=== PATIENT | male | born 1955 | race Caucasian/White ===

== ENCOUNTER → 2019-11-02 16:23 | Outpatient (CLI) | payer OTHER, SELFPAY ==
--- NOTE | 2019-11-02 16:41 | EKG12_ITS ---
Test Reason : PREOP Blood Pressure : / mmHG Vent. Rate : 083 BPM Atrial Rate : 083 BPM P-R Int : 128 ms QRS Dur : 090 ms QT Int : 364 ms P-R-T Axes : 070 043 020 degrees QTc Int : 427 ms Normal sinus rhythm Normal ECG No previous ECGs available Confirmed by WATSON MERAZ, BON ([id number]), book editor JESSICA DODGE ([id number]) on 11/05/2019 10:57:10 AM Referred By: Mendel Meraz Confirmed By:BON CHAUDHARI MD
[2019-11-02 17:12] LABS: Hematocrit 39.8 % (40-54); Hemoglobin 12.9 g/dL (13.0-16.5); Mean Corp Hgb Conc 32.4 g/dL (32-36); Mean Corpuscular Hgb 30.6 pg (27.0-32.0); Mean Corpuscular Volume 94.5 fL (80-94); Platelet Count 197 K/mm3 (150-450); RBC Distribution Width CV 11.9 % (11.6-14.6); RBC Distribution Width SD 41.3 fl (35.1-43.9); Red Blood Count 4.21 M/mm3 (4.6-6.2); White Blood Count 2.8 K/mm3 (4.4-11.0)
[2019-11-02 17:43] LABS: Anion Gap 3 (5-15); BUN 18 mg/dL (7-18); BUN/Creat Ratio 19.2 RATIO (10-20); Calcium,Total 8.1 mg/dL (8.5-10.1); Chloride 108 mmol/L (98-107); Creatinine, Serum 0.94 mg/dL (0.70-1.30); EST Glomerular Filtration Rate 86 mL/min (>60); Est Glom Filt Rate - Afr Amer 104 mL/min (>60); Glucose 109 mg/dL (74-106); Potassium 3.7 mmol/L (3.5-5.1); Sodium Level 141 mmol/L (136-145)
== END ==
PROVIDERS: Referring Provider Otolaryngology; Visit Provider Otolaryngology
DX: Z01.818 Encounter for other preprocedural examination (principal)
CPT/HCPCS: 36415; 80048; 85027; 93005

== ENCOUNTER → 2020-06-14 10:26 | Outpatient (CLI) | payer OTHER, SELFPAY ==
--- NOTE | 2020-06-14 06:10 | CT_ITS ---
STUDY: CT MAXILLOFACIAL SINUSES REASON FOR EXAM: Male, 64 years old. SINUSITIS. HAD NASAL SURGERY NOV 2019 RADIATION DOSAGE (If Supplied By Facility): CTDIvol = ( 33.06 ) mGy, DLP = ( 788.40 ) mGycm TECHNIQUE: The patient was scanned in a multi detector CT scanner. High resolution axial imaging was performed without the administration of intravenous contrast material. Sagittal and coronal images were reconstructed. Individualized dose optimization techniques were used for this CT. COMPARISON: None. FINDINGS: FRONTAL SINUSES: Normal aeration, without mucosal inflammatory disease. ETHMOIDAL SINUSES: Normal aeration, without mucosal inflammatory disease. MAXILLARY SINUSES: Mucosal thickening in the maxillary sinuses consistent with chronic sinusitis. SPHENOIDAL SINUSES: Normal aeration, without mucosal inflammatory disease. Occluded ostiomeatal units bilaterally. Normal bilateral middle turbinates. Normal bilateral inferior turbinates. Normal midline nasal septum. There is patency of the bilateral nasal airways. The visualized osseous structures are normal. The visualized bilateral orbital contents are normal. CT/Sinus/Facial Bone IMPRESSION: Occluded ostiomeatal units bilaterally with the bilateral chronic maxillary sinusitis. Electronically Signed: Zack Diaz MD at 12:34 EDT Tel , Service support ,
== END ==
PROVIDERS: Referring Provider Otolaryngology; Visit Provider Otolaryngology
DX: J32.0 Chronic maxillary sinusitis (principal)
CPT/HCPCS: 70486

== ENCOUNTER → 2020-07-04 15:35 | Outpatient (CLI) | payer OTHER, SELFPAY ==
[2020-07-04 16:47] LABS: Hematocrit 41.8 % (40-54); Hemoglobin 14.2 g/dL (13.0-16.5); Mean Corpuscular Hgb 31.8 pg (27.0-32.0); Mean Corpuscular Volume 93.7 fL (80-94); Mean Platelet Vol. 10.2 fl (6.2-12.0); Platelet Count 354 K/mm3 (150-450); RBC Distribution Width CV 11.8 % (11.6-14.6); RBC Distribution Width SD 40.4 fl (35.1-43.9); Red Blood Count 4.46 M/mm3 (4.6-6.2); White Blood Count 6.3 K/mm3 (4.4-11.0)
[2020-07-04 17:15] LABS: Anion Gap 4 (5-15); BUN 25 mg/dL (7-18); BUN/Creat Ratio 28.1 RATIO (10-20); Calcium,Total 8.9 mg/dL (8.5-10.1); Chloride 109 mmol/L (98-107); Creatinine, Serum 0.89 mg/dL (0.70-1.30); EST Glomerular Filtration Rate 91 mL/min (>60); Est Glom Filt Rate - Afr Amer 110 mL/min (>60); Glucose 124 mg/dL (74-106); Sodium Level 140 mmol/L (136-145)
== END ==
PROVIDERS: Referring Provider Otolaryngology; Visit Provider Otolaryngology
DX: Z01.818 Encounter for other preprocedural examination (principal)
CPT/HCPCS: 36415; 80048; 85027

== ENCOUNTER → 2020-07-04 17:15 | Outpatient (CLI) | payer OTHER, SELFPAY | PROVIDERS: Referring Provider Otolaryngology; Visit Provider Otolaryngology | DX: Z11.59 Encounter for screening for other viral diseases (principal) | CPT/HCPCS: 87635; C9803; U0003 ==

== ENCOUNTER → 2020-07-08 | Outpatient (CLI) | payer OTHER, SELFPAY ==
--- NOTE | 2020-07-08 | ETH_PTH ---
PATIENT: MONCHO ENCISO LOC: [facility] U#:[id number] AGE/SX: 65/M ROOM: RE07/08/[address]: Dr. Jese Meraz MD : 1955 BED: DIS: 07/08/2020 SPEC #: [id number] RECD: 07/08/20 15:04 STATUS: LOLA JANIE #: [id number] JOSE: 07/08/20 00:[address]: Jese Meraz DEPT: SURGICAL PATHOLOGY RECD BY: Edwin Cline ENTERED: 07/09/20 10:25 SP TYPE: ETH TISS OTHR DR: No Primary Care Phys [facility] Tissues: A - Ethmoid sinus, NOS B - Ethmoid sinus, NOS Procedures: Decalcification bone/plaque Surgery Specimen Level IV HEADER OPERATION: Functional endoscopic sinus surgery PRE-OP DIAGNOSIS: Nasal polyp, nasal congestion TISSUE SUBMITTED: A - Left sinus contents, B - Right sinus contents MICROSCOPIC DIAGNOSIS A. Left sinus contents: Fragments of respiratory mucosa with chronic inflammation and bone. B. Right sinus contents: Fragments of respiratory mucosa with chronic inflammation and bone. OLEGARIO:ramesh 07/14/20 MICROSCOPIC DESCRIPTION Slides are reviewed. GROSS DESCRIPTION A - Received in fixative is one container labeled with the patient's name and designated left nasal contents. The specimen consists of multiple irregular fragments of gritty camarena tissue that in aggregate measure 4 x 3 x 0.2 cm. The specimen is totally submitted in two cassettes after decalcification. B - Received in fixative is one container labeled with the patient's name and designated right nasal contents. The specimen consists of multiple irregular fragments of light camarena tissue that in aggregate measure 2 x 1 x 0.2 cm. The specimen is totally submitted in one cassette. / AM:ramesh 07/09/20 TC:3 CPT: 10762 x2, 92435
== END | disposition home or self-care (01) ==
LOC: LABSPEC 15:16
PROVIDERS: Referring Provider Otolaryngology; Visit Provider Otolaryngology
DX: J33.9 Nasal polyp, unspecified (principal); R09.81 Nasal congestion
CPT/HCPCS: 88305; 88311

== ENCOUNTER 2020-07-17 17:26 | Emergency (ER) | payer OTHER, SELFPAY ==
[2020-07-17 17:27] VITALS: BP 159/80; PULSE 70; RESP 18; TEMP 36.6; O2SAT 96; BMI 23.6
--- NOTE | 2020-07-17 17:36 | ED.VIS.GEN ---
History of Present Illness Chief Complaint: Complaint Informant: Patient Onset: Days Context: Gradual Onset Timing: Continuous Current Severity: Moderate Maximum Severity: Moderate Narrative: The patient is a 65-year-old male with no significant medical history the presents to the emergency department with difficulty urinating. Patient states he underwent outpatient surgery 10 days ago. He states that he is been taking Tylenol, and antibiotic, and another medication he cannot recall. He states over the past 3 days, he is noticed that he is had significant difficulty urinating. He states he does not hesitancy with the stream and difficulty emptying his bladder. He states for the past 12 hours, he felt like he cannot go at all and has had increasing suprapubic pain. He states he is never had anything like this before. Prior similar symptoms: No Recent Illness/Hospitalization: No Past Medical History - Allergies and Home Meds Allergies/Adverse Reactions: Allergies No Known Allergies Allergy (Verified 07/17/20 17:30) Primary Care Physician: Sidney Solis MD [STAFF PHYSICIAN] - Prior records reviewed: Yes Past Medical History: None Surgical History: noncontributory Review of Systems General: Denies: Chills, Fever, Sweats Eyes: Denies: Visual changes - bilaterally, Diplopia ENT: Denies: Rhinorrhea, Sore throat Cardiovascular: Denies: Chest pain, Palpitations Respiratory: Denies: Dyspnea, Cough, Dyspnea on exertion Gastrointestinal: Denies: Abdominal pain, Nausea, Vomiting, Diarrhea, Melena, Hematochezia Genitourinary: Reports: Frequency. Denies: Dysuria, Hematuria Musculoskeletal: Denies: Back pain, Extremity Pain Skin: Denies: Rash, Wounds Neurological: Denies: Headache, Weakness, Numbness Physical Exam Vital Signs/Narrative: Vital Signs Temp Pulse Resp BP Pulse Ox 07/17/20 17:27 97.9 F 70 18 159/80 H 96 Inital Vital Signs reviewed: Yes General: Well nourished, Well developed, No Acute Distress Head: Normocephalic, Atraumatic Eyes: Perrl, EOMI ENT: Moist mucous membranes, No rhinorrhea Neck: Supple, Nontender Cardiovascular: Regular rate, Regular rhythm, No murmurs Respiratory: No distress, CTA bilaterally, Chest nontender Abdomen: Soft, Nondistended, Normal bowel sounds, Tender. Negative for: Guarding, Rebound tenderness Back: Nontender, Normal Inspection Extremities: Nontender, No edema Skin: Normal color, No rash Neurological: Alert, Oriented x3, Cranial nerves II-XII grossly intact, Normal Strength, Normal Sensation Psychological: Normal affect, Normal Mood Diagnostic/Tx/Re-eval - Medical Decision Making The patient presents with acute urinary retention. Bladder scan was obtained and he had greater than 1200 cc. Decision was made to place Dao. Dao was placed and the patient had immediate return of 1100 cc of clear urine. It was sent for urinalysis. There is no onset of infection. The patient was much more comfortable. At this point, the patient will be discharged with the Dao in place. I will place him on prophylactic antibiotics and give him outpatient urology follow-up. He is comfortable with this plan of care. Impression 1. Acute urinary retention ED Disposition - Plan for ED Patient: Disposition: Home or Assisted Living Instructions: ED Urinary Retention Male Prescriptions: Cephalexin [Keflex] 500 mg PO Q12 #14 cap Prescription Printed Referrals: Sidney Solis MD [STAFF PHYSICIAN] -
[2020-07-17 17:57] LABS: Bacteria 0 SEEN /hpf (None Seen); Mucous, Urine 0 SEEN /hpf (<or=2+); White Blood Cells 0 SEEN /hpf (0-5)
[2020-07-17 18:15] LABS: Color, Urine Yellow (Yellow); Glucose, Dipstick Normal (Normal); Ketone-Dipstick Negative (Negative); Leukocyte Esterase-Dipstick Negative /ul (Negative); Nitrite-Dipstick Negative (Negative); Occult Blood-Urine 25 /ul (Negative); Protein-Dipstick Negative (Negative); Urine Bilirubin Dipstick Negative (Negative); Urine Clarity Sl. Cloudy (Clear); Urine Urobilinogen Normal (Normal)
[2020-07-17 18:27] LABS: Red Blood Cells-Urine 0-5 SEEN /hpf (0-5)
[2020-07-17 18:28] LABS: Squamous Epithelial Cells - UA 0-5 SEEN /hpf (0-5)
[2020-07-17 19:40] VITALS: BP 134/71; PULSE 68; RESP 17; O2SAT 98
== END 2020-07-17 19:40 | disposition home or self-care (01) ==
LOC: ED 17:52
PROVIDERS: Emergency Provider Emergency Medicine
DX: R33.9 Retention of urine, unspecified (principal)
CPT/HCPCS: 51702; 81001; 99281; 99284; A4216